=== PATIENT | female | born 1950 | race Caucasian/White ===

== ENCOUNTER 2022-11-07 18:46 | Outpatient (REF) | payer MEDICARE, SELFPAY ==
--- OUTSIDE RECORDS SUMMARY | 2022-11-07 18:55 | XMS_ITS ---
[facility], [facility] Created on: August 09, 2021 GETACHEW DANIELS : 1950 Sex: Female Author Name Esme Mejia Address [address] [place] [phone] [facility] Address [address] [place] [phone] Care Team Providers Care Signal Operator Name Role Phone Esme Mejia Unavailable [phone] PROBLEMS Type Condition ICD9-CM Code [id number] Code Onset Dates Condition Status SNOMED Code Problem Age-related osteoporosis without current pathological fracture M81.0 Active ALLERGIES Substance Reaction Event Type Date Status dust and animal dander uncomfortable sne robert cough Non Drug Allergy August, Active penicillian pain swelling [place] Non Drug Allergy August, Active ENCOUNTERS Encounter Location Date Diagnosis [facility] [address] [place] [phone] Oct, [facility] [address] [place] [phone] Oct, [facility] [address] [place] [phone] August, [facility] [address] [place] [phone] August, [facility] [address] [place] [phone] August, [facility] [address] [place] [phone] August, [facility] [address] [place] [phone] August, [facility] [address] [place] [phone] August, Age-related osteoporosis without current pathological fracture M81.0 ; Deficiency of other specified B group vitamins E53.8 ; Avitaminosis D E55.9 and Iron deficiency anemia, unspecified D50.9 [facility] [address] [place] [address] August, IMMUNIZATIONS No Known Immunizations SOCIAL HISTORY Qualifiers Date nonsmoker REASON FOR REFERRAL FUNCTIONAL STATUS PLAN OF CARE Activity Details VITAL SIGNS Weight 98 lbs 2021-08-09 Height 4 ft 10 in in 2021-08-09 BMI 20.48 kg/m2 2021-08-09 Blood pressure systolic 130 mm Hg Blood pressure diastolic 60 mm Hg 2021-08 MEDICATIONS Medication Instructions Dosage Frequency Start Date End Date Du ration Status Fluoxetine Activ e Adderall Active Rosuvastatin Calcium Active PROCEDURES Procedure Date Ordered Result Body Site ASSAY THYROID STIM HORMONE August 09, 2021 VENIPUNCT, ROUTINE* August 09, 2021 TOTAL CORTISOL August 09, 2021 ASSAY OF IRON August 09, 2021 ASSAY OF ACTH August 09, 2021 THYROGLOBULIN ANTIBODY August 09, 2021 ASSAY OF VITAMIN D August 09, 2021 LIPID PANEL August 09, 2021 ASSAY OF PARATHORMONE August 09, 2021 ASSAY OF THYROID (T3 OR T4) August 09, 2021 ASSAY OF TOTAL THYROXINE August 09, 2021 ASSAY OF CK (CPK) August 09, 2021 ASSAY, TRIIODOTHYRONINE (T3) August 09, 2021 GENERAL HEALTH PANEL August 09, 2021 FREE ASSAY (FT-3) August 09, 2021 COMPLETE CBC W/AUTO DIFF WBC August 09, 2021 ASSAY OF FREE THYROXINE August 09, 2021 C-REACTIVE PROTEIN August 09, 2021 ASSAY OF FERRITIN August 09, 2021 BLOOD FOLIC ACID SERUM August 09, 2021 VITAMIN B-12 August 09, 2021 GLYCATED HEMOGLOBIN TEST August 09, 2021 MICROSOMAL ANTIBODY August 09, 2021 RESULTS Name Result Date Reference Range PROTEIN ELECTROPHORESIS,SERUM - 40 2021-0 5-03 ALBUMIN 3.9 3.5-5.2 ALPHA 1 0.2 0.10-0.40 ALPHA 2 1.0 0.40-1.20 BETA 0.9 0.60-1.30 GAMMA 0.7 0.50-1.60 M-SPIKE 0.1 0.0 REMARKS See Notes TOTAL PROTEIN 6.7 6.0-8.3 TRYPTASE - 8460 2021-08-09 TRYPTASE 4.8 <11.0 OSTEOCALCIN,N-MID - 07195 2021-08-09 OSTEOCALCIN,N-MID 13 11-50 TOTAL PROTEIN - 24 2021-08-09 TOTAL PROTEIN 6.7 6.0-8.3 C-TELOPEPTIDE - 8586 2021-08-09 C-TELOPEPTIDE 229 IMMUNOFIXATION,SERUM - 1255 2021-08-09 IMMUNOFIXATION,SERUM See Notes Complete Blood Count with Auto Diff 08-09 Granulocytes, Absolute 4.4 1.2-6 .8 Granulocytes, Percentage 75.5 43. 0-76.0 Hematocrit 39.9 35.0-50.0 Hemoglobin 13.6 11.0-16.5 Lymphocyte, Absolute 1.0 1.2-3.2 Lymphocyte, Percentage 19.6 17.0- 48.0 Mean Corpuscular Hemoglobin 32.1 26.5-33.5 Mean Corpuscular Hemoglobin Concentration 34.1 31.5-35.0 Mean Corpuscular Volume 94 80-9 7 Mean Platelet Volume 6.6 6.5-11. 0 Monocyte, Absolute 0.2 0.3-0.8 Monocyte, Percentage 4.9 4.0-10. 0 Platelets 280 150-390 Red Blood Cell 4.24 3.80-5.80 Red Cell Distribution Width 12.4 10.0-15.0 White Blood Cell 5.6 3.5-10.0 TSH, Total T4, Ft4, FT3, TT3 T3RU 2021-08 Free T3 2.42 2.30-4.20 Free T4 1.1 0.8-1.6 T Uptake 27.0 22.0-35.0 Total T3 0.9 0.8-1.6 Total T4 7.0 4.5-12.0 TSH 0.917 0.400-4.000 Thyroid Globulin Antibody 2021-08-09 Thyroid Globulin Antibody <12.00 0. 00-28.7 Thyroid Peroxidase Antibody 2021-08-09 Thyroid Peroxidase Antibody <8.00 0.00-10.1 Vitamin D 25 Hydroxy include s Fraction if possible 2021-08-09 Vitamin D 59.6 30.0-100.0 Folate 2021-08-09 Folate >20.0 3.0-16.0 Ferritin 2021-08-09 Ferritin 24.0 3.0-73.0 Iron Binding Capacity, TIBC 2021-08-09 Iron 69 50-170 C-Reactive Protein 2021-08-09 C-Reactive Protein 0.54 0.00-10.0 0 Vitamin B12 2021-08-09 Vitamin B12 1000.0 230.0-1050.0 Intact PTH 2021-08-09 Intact PTH 85.7 8.2-83.5 Cortisol, Total 2021-08-09 Cortisol 8.7 6.4-21.0 ACTH 2021-08-09 ACTH 10.56 6.00-58.00 Lipid Panel 2021-08-09 CHOL/HDL Risk Ratio 3 Cholesterol 182 100-200 HDL 69 40-100 LDL-Calculated 97 0-130 LDL/HDL Risk Ratio 1 Triglyceride 82 0-150 VLDL 16 Comprehensive Metabolic Panel 2021-08-09 Albumin 4.5 3.3-5.5 Alkaline Phosphatase 85 42-141 ALT (SGPT) 29 10-47 AST (SGOT) 31 11-38 Bilirubin, Total 0.50 0.20-1.60 BUN 16 7-22 BUN/Creat Ratio 26 Calcium 9.2 8.0-10.3 Chloride 99 98-108 CO2 25 18-33 Creatinine 0.6 0.6-1.2 Glucose 110 73-118 Potassium 4.4 3.6-5.1 Sodium 137 128-145 Total Protein 6.3 6.4-8.1 Creatine Kinase, Total 2021-08-09 Creatine Kinase 108 26-140 HbA1C 2021-08-09 Hemoglobin A1C REASON FOR VISIT Mail copy of lab results, Reason for Referral?, test results, test results, Waiting for call back, Phone call, Needs call back from , OSTEOPOROSIS, Update Kiosk Demographics Insurance Providers Health Insurance Type Health Plan Insurance Address Health Plan Insurance Phone Health Plan Insurance Name Health Plan Coverage Dates Member ID Patient Relationship to Subscriber Patient Address Patient Phone Patient Name Patient Date of Subscriber ID Subscriber Name Subscriber Date of Group No Medicare [address] [place] [address] Medicare self GETACHEW JEREMIAH 1950 [id number] [employer] [address] [facility] [place] [phone] Cign[employer] self GETACHEW JEREMIAH 1950 [id number]
== END 2022-11-07 18:47 | disposition home or self-care (01) ==
LOC: LBN 18:46
PROVIDERS: Visit Provider Nurse Practitioner Family
DX: R30.0 Dysuria (principal)
CPT/HCPCS: 87077; 87086; 87186